=== PATIENT | female | born 2000 | race Caucasian/White ===

== ENCOUNTER 2022-05-06 14:09 | Emergency (ER) | payer BC, OTHER ==
[2022-05-06 14:50] LABS: BLOOD UREA NITROGEN,BUN 13 mg/dL (7.0-18.0); CARBON DIOXIDE,CO2 26.4 mmol/L (21.0-32.0); CHLORIDE,CL 102 mmol/L (98-107); GLUCOSE RANDOM 95 mg/dL (74-106); POTASSIUM,K 3.8 mmol/L (3.5-5.1); SODIUM,NA 140 mmol/L (136-145)
[2022-05-06 14:51] LABS: ESTIMATED GFR 106 mL/min (>60)
== END 2022-05-06 15:42 | disposition left against medical advice (07) ==
LOC: MW.ED 14:09
DX: N92.1 Excessive and frequent menstruation with irregular cycle (principal)
CPT/HCPCS: 36415; 80053; 84703; 85025; 86900; 86901; 99282; 99284

== ENCOUNTER → 2024-02-02 | Emergency (ER) | payer BC, OTHER ==
[2024-02-02] MEDS: Lidocaine 2% Viscous Solution 15 ML UD PO PRN (13:18)
[2024-02-02] MEDS: Benzocaine 20% Topical Spray UD MUCMEM ONE (13:18)
== END | disposition home or self-care (01) ==
LOC: MW.ED 12:30
DX: K08.89 Other specified disorders of teeth and supporting structures (principal); Z75.8 Other problems related to medical facilities and other health care; Z79.899 Other long term (current) drug therapy
CPT/HCPCS: 99282; A9270

== ENCOUNTER 2024-08-11 13:16 | Emergency (ER) | payer BC ==
[2024-08-11] MEDS: Ondansetron 4 MG/2 ML SDV IVPUSH ONE (16:11)
[2024-08-11] MEDS: Lactated Ringers 1,000 ML IV ONE (16:13)
[2024-08-11] MEDS: Ketorolac 30 MG/ML SDV IVPUSH ONE (16:14)
[2024-08-11] MEDS: Acetaminophen 500 MG Tab PO ONE (16:19)
[2024-08-11] MEDS: Sodium Chloride 0.9% 10 ML Syringe FLUSH PRN (16:21)
[2024-08-11 16:30] LABS: BASOPHILS ABSOLUTE AUTO 0.06 K/uL (0.00-0.20); BASOPHILS PERCENT AUTO 0.6 % (0.0-1.0); EOSINOPHILS PERCENT AUTO 1.1 % (0.0-6.0); HEMATOCRIT 40.9 % (37.0-47.0); HEMOGLOBIN 13.3 g/dL (12.0-16.0); IMMATURE GRAN ABSOLUTE AUTO 0.06 K/uL (0.00-0.05); IMMATURE GRAN PERCENT AUTO 0.6 % (0.0-0.4); LYMPHOCYTES ABSOLUTE AUTO 0.63 K/uL (1.00-4.80); LYMPHOCYTES PERCENT AUTO 6.6 % (24.0-44.0); MEAN CORPUSCULAR HEMOGLOBIN 27.1 pg (28.0-32.0); MEAN CORPUSCULAR HGB CONC 32.5 g/dL (32.0-36.0); MEAN CORPUSCULAR VOLUME 83.5 fL (83.0-99.0); MEAN PLATELET VOLUME 9.4 fL (9.4-12.3); MONOCYTES ABSOLUTE AUTO 0.65 K/uL (0.00-0.80); MONOCYTES PERCENT AUTO 6.8 % (0.0-8.0); NEUTROPHILS ABSOLUTE AUTO 7.99 K/uL (1.80-7.70); NEUTROPHILS PERCENT AUTO 84.3 % (41.0-71.0); PLATELET COUNT,PLT 349 K/uL (150-400); WHITE BLOOD CELL COUNT,WBC 9.49 K/uL (3.9-11.3)
[2024-08-11 16:32] LABS: APPEARANCE,URINE CLEAR; BILIRUBIN,URINE NEGATIVE (NEGATIVE); COLOR,URINE YELLOW; GLUCOSE,URINE NEGATIVE (NEGATIVE); KETONES,URINE NEGATIVE (NEGATIVE); LEUKOCYTE ESTERASE,URINE NEGATIVE (NEGATIVE); NITRITE,URINE NEGATIVE (NEGATIVE); OCCULT BLOOD,URINE TRACE-INTACT (NEGATIVE); PROTEIN,URINE NEGATIVE (NEGATIVE); UROBILINOGEN,URINE 0.2 EU/dL (<2.0)
[2024-08-11 16:44] LABS: BACTERIA,URINE FEW (NEGATIVE); EPITHELIAL CELLS,URINE FEW (NONE-FEW); WBC,URINE 0-1 (0-5/HPF)
[2024-08-11 16:58] LABS: ALANINE AMINOTRANSFERASE,ALT 18 IU/L (14-63); ALBUMIN 4.6 g/dL (3.4-5.0); ALKALINE PHOSPHATASE 50 U/L (46-116); ASPARTATE AMNIOTRANSFERASE,AST 14 IU/L (15-37); BILIRUBIN TOTAL 0.6 mg/dL (0.2-1.0); BLOOD UREA NITROGEN,BUN 9 mg/dL (7.0-18.0); CALCIUM 9.3 mg/dL (8.5-10.1); CARBON DIOXIDE,CO2 24.5 mmol/L (21.0-32.0); CHLORIDE,CL 99 mmol/L (98-107); CREATININE 0.7 mg/dL (0.6-1.0); EST CRCL DRUG DOSING (CG) 101.63 mL/min; GLUCOSE RANDOM 82 mg/dL (74-106); MAGNESIUM 1.9 mg/dL (1.8-2.4); POTASSIUM,K 3.7 mmol/L (3.5-5.1); PRO B-TYPE NATRIUR PEPT,BNPPRO 183 pg/mL (0-125); SODIUM,NA 137 mmol/L (136-145)
[2024-08-11 17:01] LABS: A/G RATIO 1.1 (0.9-1.6); ESTIMATED GFR 123 mL/min (>60)
[2024-08-17] MEDS: Lactated Ringers 1,000 ML IV ONE (06:05)
== END 2024-08-11 18:24 | disposition home or self-care (01) ==
LOC: MW.ED 13:16
DX: J02.9 Acute pharyngitis, unspecified (principal); B34.9 Viral infection, unspecified; Z79.899 Other long term (current) drug therapy
CPT/HCPCS: 36415; 71045; 80053; 81001; 83605; 83735; 83880; 84484; 84703; 85025; 87428; 87651; 93005; 96361; 96374; 96375; 99285; A9270; J1885; J2405; J7120; 93010; 99284